=== PATIENT | male | born 1975 | race Caucasian/White ===

== ENCOUNTER 2016-11-26 19:13 | Emergency (ER) | payer OTHER ==
--- NOTE | 2016-11-26 20:00 | ED NURSING NOTES ---
Clinical Report - Nurses [facility] [address] [place] [address] 11/26/2016 19:14 Patient: NASH DEL TORO TRIAGE Triage time 19:Nov 26 2016. Acuity: LEVEL 3. Alert. No acute distress. YANNI COMA SCORE: [place] Coma Scale: 15- eyes open spontaneously (4); best verbal response- oriented x 4 (5); best motor response- obeys commands (6). --19:27 Melina Zuleta R.N. 19:21 11/26/16. BP: 143/94. HR: 89. RR: 18. O2 saturation: 97%. Temp: 98.2 F. Pain level now 0/10. --19:27 Melina Zuleta R.N. Chief Complaint: RECTAL BLEED. --21:08 Melina Zuleta R.N. Weight: 99.7 kg stated. Height/Length: 72 inches Per Patient. BMI: 29.8. --19:21 Melina Zuleta R.N. Medications Paxil Oral 10 mg, daily. --19:22 Melina Zuleta R.N. Advil Oral, as needed. --19:22 Melina Zuleta R.N. Medication/allergy information source: the patient. --19:27 Melina Zuleta R.N. Allergies No Known Drug Allergy. --19:21 Melina Zuleta R.N. History Arrived by private vehicle. Primary physician (Marcy). ( Blood in stool, noticed last at work again on Sunday and today. Some bright specs on the TP, but the toilet if full of bright red mucous on top of the stool.). Onset. (since ). Treatment COMPUTER TESTER: (Advil). PAST MEDICAL HX: Has not received seasonal influenza immunization. SURGERY HX: No history of previous surgery. SOCIAL HX: Heavy tobacco smoker (cigarette)- less than 1 pack per day. Occasional alcohol use. No drug use. FALL RISK ASSESSMENT: Fall risk assessment completed. No fall risk identified. NUTRITIONAL RISK ASSESSMENT: The nutritional risk assessment revealed no deficiencies. FUNCTIONAL ASSESSMENT: Functional assessment: no impairments noted. LEARNING NEEDS ASSESSMENT: The learning needs assessment revealed no barriers. SKIN INTEGRITY ASSESSMENT: Skin integrity risk assessment completed. No skin integrity risk identified. --19:27 Melina Zuleta R.N. PROBLEMS: Peritonsillar Abscess. Puncture Wound. Sprain. Lung Disease. Tetanus Status. --19:22 Melina Zuleta R.N. Interventions ID band on patient. To room. --19:27 Melina Zuleta R.N. PHYSICAL ASSESSMENT Ambulatory to room. GENERAL / NEURO / PSYCH: Oriented X 4. Appears in no acute distress. RESPIRATORY: Respirations not labored. CVS: Capillary refill less than 2 seconds. GI / : Abdomen soft. SKIN: Skin is warm and dry. --21:05 Melina Zuleta R.N. NURSING PROGRESS NOTES Patient ID band checked for patient name and birthdate: patient confirmed. Blood samples drawn from the right antecubital space with syringe and 21g butterfly by tech per protocol ; labeled in presence of the patient and sent to lab: [employer] set. --19:43 Zane Oliva, ER Pigment Grinder Hemoccult test negative. commercial pest control technician check passed. (POC test reference range: negative). --21:06 Melina Zuleta R.N. DISPOSITION / DISCHARGE Departure time: 20:30 Nov 26 2016. Condition at departure: unchanged and stable. No learning barriers present. Patient verbalized understanding. Written instructions provided in Faroese. No medication instructions. The patient was discharged by the nurse practitioner. He was discharged home. He left the Emergency Department ambulatory and via private vehicle. Patient driving. --21:07 Melina Zuleta R.N. 21:06 11/26/16. BP: 138/72. HR: 78. RR: 18. O2 saturation: 100%. Pain level now 0/10. --21:07 Melina Zuleta R.N. Locked/Released at 11/26/2016 21:08 by Melina Zuleta R.N.
--- NOTE | 2016-11-26 20:00 | ED CLINICAL REPORT ---
Clinical Report - Physicians/Mid Levels [facility] [address] [place] [place] [address] 11/26/2016 19:14 Patient: NASH DEL TORO Time Seen: 19:38 Nov 26 2016. Arrived- By private vehicle. Historian- patient. HISTORY OF PRESENT ILLNESS Chief Complaint: RECTAL BLEEDING. 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 The patient has had rectal bleeding but not had dark stools. No nausea or vomiting. (patient presents to the emergency department, reports he has had a few bowel movements with bright red blood following his movements. Has been taking 600-1600 motrin daily for the last 4-6 months. Denies melana. Dreports brb. Denies hemorrhoid.). REVIEW OF SYSTEMS No dizziness, fainting episodes, abnormal bleeding, blurred vision or sore throat. No cough or difficulty breathing. All systems otherwise negative, except as recorded above. PAST HISTORY Problems: Peritonsillar Abscess. Puncture Wound. Sprain. Lung Disease. Tetanus Status. Additional Surgeries: no known surgeries. Medications: Advil Oral, as needed. Paxil Oral 10 mg, daily. Allergies: No Known Drug Allergy. SOCIAL HISTORY Smoker- current status unknown. Alcohol use. No drug use. ADDITIONAL NOTES The nursing notes have been reviewed. PHYSICAL EXAM Vital Signs: 11/26/2016 19:21 BP: 143/94. HR: 89. RR: 18. O2 saturation: 97%. Temp: 98.2 F. Appearance: Alert. ENT: Nose normal. Pharynx normal. Neck: Normal inspection. CVS: Normal heart rate and rhythm. Respiratory: No respiratory distress. Breath sounds normal. No decreased air movement. Abdomen: Soft and nontender. Bowel sounds normal. No distention. Rectal: Rectal exam normal and nontender. Stool color normal. Stool heme negative. (POC test reference range: negative). No digital exam tenderness. Neuro: Oriented X 3. LABS, X-RAYS, AND EKG Laboratory Tests: CBC w Diff: (SHAVONNE: 11/26/2016 19:40) ( MsgRcvd 11/26/2016 19:50) Final results Test Result Flag Units (Reference) WHITE BLOOD COUNT 10.3 K/uL (4.5-11.5) RED BLOOD COUNT 4.83 M/uL (4.50-5.90) HEMOGLOBIN 15.3 gm/dL (13.5-17.5) HEMATOCRIT 44.8 % (41.0-53.0) MEAN CELL VOLUME 93 fL (80-100) MEAN CORPUSCULAR HGB 32 pg (26-34) MEAN CORPUSCULAR HGB CONC 34 g/dL (31-37) RED CELL DISTRIBUTION WIDTH 14.5 % (11.6-14.8) PLATELET COUNT 233 K/uL (150-400) NEUTROPHIL % 58.9 % (50-75) LYMPH % 31.6 % (25-40) MONO % 4.5 % (3-14) EOSINOPHIL % 4.4 H % (0-4) BASOPHIL % 0.6 % (0-2) PT with INR: (SHAVONNE: 11/26/2016 19:40) ( VagRcvd 11/26/2016 19:54) Final results Test Result Flag Units (Reference) INR 0.8 (0.8-1.2) Low Intensity Therapy: INR 1.5-2.0 PT range 18.5-23.1Mod.Intensity Therapy: INR 2.0-3.0 PT range 23.1-31.5High Intensity Therapy: INR 2.5-3.5 PT range 27.4-35.5High Intensity Therapy 2: INR 3.0-4.0 PT range 31.5-39.3 APTT 28 SECONDS (24-34) BMP: (SHAVONNE: 11/26/2016 19:40) ( MsgRcvd 11/26/2016 19:55) Final results Test Result Flag Units (Reference) GLUCOSE 119 H mg/dL (70-110) BUN 11 mg/dL (7-18) CREATININE 1.0 mg/dL (0.6-1.3) Estimated GFR >60 mL/min Estimated GFR- >60 mL/min Note: Persistent reduction over 3 months in eGFR<60 mL/min/1.73 m2 defines CKD. Patients with eGFR values>=60 mL/min/1.73 m2 may also have CKD if evidence ofpersistent proteinuria. Additional information may be foundat www.kidney.org. SODIUM 141 mmol/L (136-145) POTASSIUM 3.4 L mmol/L (3.5-5.1) CHLORIDE 106 mmol/L (98-107) CARBON DIOXIDE 28 mmol/L (21-32) CALCIUM 8.9 mg/dL (8.5-10.1) . PROGRESS AND PROCEDURES Course of Care: Chaperoned rectal exam with Facundo heme neg. NO signs of hemorrhoids, no signs of bleeding, hemoccult neg. Suspect either small fissure or possible complications from nsaid, however no melana, hematemesis is present. Pt instructed to stop nsaid, start tylneol and to f/u outpatient. Abd soft. NO familial h/o blood clotting/ heme diseases. Patient is stable. Patient/family counseled. Disposition: Discharged. Condition: good. CLINICAL IMPRESSION Rectal bleed consisting of bright red blood. INSTRUCTIONS Drink plenty of fluids. (Take TYLENOL instead of advil please Follow up with primary care DR in 5-10 days). Your Current Medications: STOP TAKING THE FOLLOWING MEDICATIONS: Advil Oral : prn. (Electronically signed by Kathrin Parks P.A.-C 11/26/2016 20:26)
--- NOTE | 2016-11-26 20:00 | ED ORDER SUMMARY ---
..... Patient: NASH DEL TORO OrderSheet [facility] VisitID: [id number] [place] [address] 41y, M Registration Date/Time: 11/26/2016 ORDER SHEET Weight: 99.7 kg (stated) Allergies: No Known Drug Allergy GENERAL ORDERS: CBC w Diff Urgent (19:37 11/26/2016 EKoroleva P.A.-C) (19:44 CHagerty ER Geological Specialist) BMP Urgent (19:37 11/26/2016 EKoroleva P.A.-C) (19:44 CHagerty ER Geological Specialist) PT with INR Urgent (19:37 11/26/2016 EKoroleva P.A.-C) (19:44 CHagerty ER Geological Specialist) PTT Urgent (19:37 11/26/2016 EKoroleva P.A.-C) (19:44 CHagerty ER Geological Specialist) MEDICATION ORDERS: IV FLUIDS: ORDER SHEET NOTES: [Electronically signed by Kathrin ParksAGalileo-C (20:26 11/26/2016)] [Electronically signed by Melina Zuleta R.N. (21:08 11/26/2016)] [Electronically locked/signed by Melina Zuleta R.N. (21:11/26/2016)]
--- NOTE | 2016-11-26 20:00 | ED ORDER SUMMARY ---
..... Patient: NASH DEL TORO OrderSheet [facility] VisitID: [id number] [place] [address] 41y, M Registration Date/Time: 11/26/2016 ORDER SHEET Weight: 99.7 kg (stated) Allergies: No Known Drug Allergy GENERAL ORDERS: CBC w Diff Urgent (19:37 11/26/2016 EKoroleva P.A.-C) (19:44 CHagerty ER Traffic Line Painter) BMP Urgent (19:37 11/26/2016 EKoroleva P.A.-C) (19:44 CHagerty ER Traffic Line Painter) PT with INR Urgent (19:37 11/26/2016 EKoroleva P.A.-C) (19:44 CHagerty ER Traffic Line Painter) PTT Urgent (19:37 11/26/2016 EKoroleva P.A.-C) (19:44 CHagerty ER Traffic Line Painter) MEDICATION ORDERS: IV FLUIDS: ORDER SHEET NOTES: [Electronically signed by Kathrin ParksAGalileo-C (20:26 11/26/2016)] [Electronically signed by Melina Zuleta R.N. (21:08 11/26/2016)] [Electronically locked/signed by Melina Zuleta R.N. (21:11/26/2016)]
--- NOTE | 2016-11-26 20:00 | ED CLINICAL REPORT ---
Clinical Report - Physicians/Mid Levels [facility] [address] [place] [place] [address] 11/26/2016 19:14 Patient: NASH DEL TORO Time Seen: 19:38 Nov 26 2016. Arrived- By private vehicle. Historian- patient. HISTORY OF PRESENT ILLNESS Chief Complaint: RECTAL BLEEDING. 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 The patient has had rectal bleeding but not had dark stools. No nausea or vomiting. (patient presents to the emergency department, reports he has had a few bowel movements with bright red blood following his movements. Has been taking 600-1600 motrin daily for the last 4-6 months. Denies melana. Dreports brb. Denies hemorrhoid.). REVIEW OF SYSTEMS No dizziness, fainting episodes, abnormal bleeding, blurred vision or sore throat. No cough or difficulty breathing. All systems otherwise negative, except as recorded above. PAST HISTORY Problems: Peritonsillar Abscess. Puncture Wound. Sprain. Lung Disease. Tetanus Status. Additional Surgeries: no known surgeries. Medications: Advil Oral, as needed. Paxil Oral 10 mg, daily. Allergies: No Known Drug Allergy. SOCIAL HISTORY Smoker- current status unknown. Alcohol use. No drug use. ADDITIONAL NOTES The nursing notes have been reviewed. PHYSICAL EXAM Vital Signs: 11/26/2016 19:21 BP: 143/94. HR: 89. RR: 18. O2 saturation: 97%. Temp: 98.2 F. Appearance: Alert. ENT: Nose normal. Pharynx normal. Neck: Normal inspection. CVS: Normal heart rate and rhythm. Respiratory: No respiratory distress. Breath sounds normal. No decreased air movement. Abdomen: Soft and nontender. Bowel sounds normal. No distention. Rectal: Rectal exam normal and nontender. Stool color normal. Stool heme negative. (POC test reference range: negative). No digital exam tenderness. Neuro: Oriented X 3. LABS, X-RAYS, AND EKG Laboratory Tests: CBC w Diff: (SHAVONNE: 11/26/2016 19:40) ( MsgRcvd 11/26/2016 19:50) Final results Test Result Flag Units (Reference) WHITE BLOOD COUNT 10.3 K/uL (4.5-11.5) RED BLOOD COUNT 4.83 M/uL (4.50-5.90) HEMOGLOBIN 15.3 gm/dL (13.5-17.5) HEMATOCRIT 44.8 % (41.0-53.0) MEAN CELL VOLUME 93 fL (80-100) MEAN CORPUSCULAR HGB 32 pg (26-34) MEAN CORPUSCULAR HGB CONC 34 g/dL (31-37) RED CELL DISTRIBUTION WIDTH 14.5 % (11.6-14.8) PLATELET COUNT 233 K/uL (150-400) NEUTROPHIL % 58.9 % (50-75) LYMPH % 31.6 % (25-40) MONO % 4.5 % (3-14) EOSINOPHIL % 4.4 H % (0-4) BASOPHIL % 0.6 % (0-2) PT with INR: (SHAVONNE: 11/26/2016 19:40) ( TxgRcvd 11/26/2016 19:54) Final results Test Result Flag Units (Reference) INR 0.8 (0.8-1.2) Low Intensity Therapy: INR 1.5-2.0 PT range 18.5-23.1Mod.Intensity Therapy: INR 2.0-3.0 PT range 23.1-31.5High Intensity Therapy: INR 2.5-3.5 PT range 27.4-35.5High Intensity Therapy 2: INR 3.0-4.0 PT range 31.5-39.3 APTT 28 SECONDS (24-34) BMP: (SHAVONNE: 11/26/2016 19:40) ( MsgRcvd 11/26/2016 19:55) Final results Test Result Flag Units (Reference) GLUCOSE 119 H mg/dL (70-110) BUN 11 mg/dL (7-18) CREATININE 1.0 mg/dL (0.6-1.3) Estimated GFR >60 mL/min Estimated GFR- >60 mL/min Note: Persistent reduction over 3 months in eGFR<60 mL/min/1.73 m2 defines CKD. Patients with eGFR values>=60 mL/min/1.73 m2 may also have CKD if evidence ofpersistent proteinuria. Additional information may be foundat www.kidney.org. SODIUM 141 mmol/L (136-145) POTASSIUM 3.4 L mmol/L (3.5-5.1) CHLORIDE 106 mmol/L (98-107) CARBON DIOXIDE 28 mmol/L (21-32) CALCIUM 8.9 mg/dL (8.5-10.1) . PROGRESS AND PROCEDURES Course of Care: Chaperoned rectal exam with Facundo heme neg. NO signs of hemorrhoids, no signs of bleeding, hemoccult neg. Suspect either small fissure or possible complications from nsaid, however no melana, hematemesis is present. Pt instructed to stop nsaid, start tylneol and to f/u outpatient. Abd soft. NO familial h/o blood clotting/ heme diseases. Patient is stable. Patient/family counseled. Disposition: Discharged. Condition: good. CLINICAL IMPRESSION Rectal bleed consisting of bright red blood. INSTRUCTIONS Drink plenty of fluids. (Take TYLENOL instead of advil please Follow up with primary care DR in 5-10 days). Your Current Medications: STOP TAKING THE FOLLOWING MEDICATIONS: Advil Oral : prn. (Electronically signed by Kathrin Parks P.A.-C 11/26/2016 20:26)
--- NOTE | 2016-11-26 20:00 | ED NURSING NOTES ---
Clinical Report - Nurses [facility] [address] [place] [address] 11/26/2016 19:14 Patient: NASH DEL TORO TRIAGE Triage time 19:Nov 26 2016. Acuity: LEVEL 3. Alert. No acute distress. YANNI COMA SCORE: [place] Coma Scale: 15- eyes open spontaneously (4); best verbal response- oriented x 4 (5); best motor response- obeys commands (6). --19:27 Melina Zuleta R.N. 19:21 11/26/16. BP: 143/94. HR: 89. RR: 18. O2 saturation: 97%. Temp: 98.2 F. Pain level now 0/10. --19:27 Melina Zuleta R.N. Chief Complaint: RECTAL BLEED. --21:08 Melina Zuleta R.N. Weight: 99.7 kg stated. Height/Length: 72 inches Per Patient. BMI: 29.8. --19:21 Melina Zuleta R.N. Medications Paxil Oral 10 mg, daily. --19:22 Melina Zuleta R.N. Advil Oral, as needed. --19:22 Melina Zuleta R.N. Medication/allergy information source: the patient. --19:27 Melina Zuleta R.N. Allergies No Known Drug Allergy. --19:21 Melina Zuleta R.N. History Arrived by private vehicle. Primary physician (Marcy). ( Blood in stool, noticed last at work again on Sunday and today. Some bright specs on the TP, but the toilet if full of bright red mucous on top of the stool.). Onset. (since ). 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 PAST MEDICAL HX: Has not received seasonal influenza immunization. SURGERY HX: No history of previous surgery. SOCIAL HX: Heavy tobacco smoker (cigarette)- less than 1 pack per day. Occasional alcohol use. No drug use. FALL RISK ASSESSMENT: Fall risk assessment completed. No fall risk identified. NUTRITIONAL RISK ASSESSMENT: The nutritional risk assessment revealed no deficiencies. FUNCTIONAL ASSESSMENT: Functional assessment: no impairments noted. LEARNING NEEDS ASSESSMENT: The learning needs assessment revealed no barriers. SKIN INTEGRITY ASSESSMENT: Skin integrity risk assessment completed. No skin integrity risk identified. --19:27 Melina Zuleta R.N. PROBLEMS: Peritonsillar Abscess. Puncture Wound. Sprain. Lung Disease. Tetanus Status. --19:22 Melina Zuleta R.N. Interventions ID band on patient. To room. --19:27 Melina Zuleta R.N. PHYSICAL ASSESSMENT Ambulatory to room. GENERAL / NEURO / PSYCH: Oriented X 4. Appears in no acute distress. RESPIRATORY: Respirations not labored. CVS: Capillary refill less than 2 seconds. GI / : Abdomen soft. SKIN: Skin is warm and dry. --21:05 Melina Zuleta R.N. NURSING PROGRESS NOTES Patient ID band checked for patient name and birthdate: patient confirmed. Blood samples drawn from the right antecubital space with syringe and 21g butterfly by tech per protocol ; labeled in presence of the patient and sent to lab: [employer] set. --19:43 Zane Oliva, ER Slip Box Changer Hemoccult test negative. process control technician check passed. (POC test reference range: negative). --21:06 Melina Zuleta R.N. DISPOSITION / DISCHARGE Departure time: 20:30 Nov 26 2016. Condition at departure: unchanged and stable. No learning barriers present. Patient verbalized understanding. Written instructions provided in Nepali. No medication instructions. The patient was discharged by the nurse practitioner. He was discharged home. He left the Emergency Department ambulatory and via private vehicle. Patient driving. --21:07 Melina Zuleta R.N. 21:06 11/26/16. BP: 138/72. HR: 78. RR: 18. O2 saturation: 100%. Pain level now 0/10. --21:07 Melina Zuleta R.N. Locked/Released at 11/26/2016 21:08 by Melina Zuleta R.N.
--- NOTE | 2016-11-26 21:09 | ED MED RECONCILIATION SUMMARY ---
Patient: NASH DEL TORO Medication Reconciliation Report [facility] VisitID: [id number] [address] [place] [address] 41y, M Registration Date/Time: 11/26/2016 Weight: 99.7 kg Height/Length: 72 in. BMI: 29.8 ALLERGIES: No Known Drug Allergy The patient's Home Medications are listed below: STOP TAKING THE FOLLOWING MEDICATIONS: Advil Oral THE FOLLOWING MEDICATIONS NEED TO BE RECONCILED: Paxil Oral 10 mg, daily The source(s) of the original Home Medication information: patient The following Medications were given to the patient in the Emergency Department: None. The following Medications were prescribed to the patient: None.
--- NOTE | 2016-11-26 21:09 | ED MED RECONCILIATION SUMMARY ---
Patient: NASH DEL TORO Medication Reconciliation Report [facility] VisitID: [id number] [address] [place] [address] 41y, M Registration Date/Time: 11/26/2016 Weight: 99.7 kg Height/Length: 72 in. BMI: 29.8 ALLERGIES: No Known Drug Allergy The patient's Home Medications are listed below: STOP TAKING THE FOLLOWING MEDICATIONS: Advil Oral THE FOLLOWING MEDICATIONS NEED TO BE RECONCILED: Paxil Oral 10 mg, daily The source(s) of the original Home Medication information: patient The following Medications were given to the patient in the Emergency Department: None. The following Medications were prescribed to the patient: None.
--- NOTE | 2016-11-26 21:09 | ED MAR SUMMARY ---
..... Medication Administration Record [facility] [address] [place], [place] [id number] Patient: ALVERTO, NASH Mendoza Visit ID: [id number] 41y, M Weight: 99.7 kg Height/Length: 72 in BMI: 29.8 ALLERGIES: No Known Drug Allergy
--- NOTE | 2016-11-26 21:09 | ED DISCHARGE INSTRUCTIONS ---
Patient: NASH DEL TORO General Instructions [facility] VisitID: [id number] [place] [address] 41y, M Registration Date/Time: 11/26/2016 Rectal bleed consisting of bright red blood. INSTRUCTIONS Drink plenty of fluids. (Take TYLENOL instead of advil please Follow up with primary care DR in 5-10 days). Your Current Medications: STOP TAKING THE FOLLOWING MEDICATIONS: Advil Oral : prn. ADDITIONAL INFORMATION Rectal Bleeding (Stable) Your exam today shows signs of blood in the stool. This is called rectal bleeding, because the blood passes through the rectum. However, the blood may not be coming from the rectum. Blood in the stool may be red or black in color. Red blood in the stool usually comes from the lower gastro-intestinal (GI) tract. This may be due to diverticulosis, polyps, colon inflammation or infection, anal fissure or hemorrhoids. In persons over 50 tumors and cancer of the intestinal tract may first show up as red blood in the stool. Upper GI bleeding causes the stool to turn black. This may occur with bleeding from the esophagus, stomach, duodenum or small intestine. Very small amounts of GI bleeding may not be visible and can only be discovered on a chemical test of the stool. You have not lost a large amount of blood and your condition appears stable at this time. It is very important to have a follow-up exam to determine the exact cause of your bleeding. Home Care: 1) You may resume normal activity as long as you feel well. 2) Avoid aspirin and anti-inflammatory drugs such as ibuprofen (Advil, Motrin) and naproxen (Aleve and Naprosyn). You may use acetaminophen (Tylenol) for pain. [ NOTE : If you have chronic liver disease, talk with your doctor before using acetaminophen.] 3) Avoid alcohol. Follow Up with your doctor or as advised by our medical staff. It is very important that you have further tests done to find the cause of your bleeding. Get Prompt Medical Attention if any of the following occur: -- Large amount of rectal bleeding (more than 1 cup of blood in 24 hours) -- Increasing abdominal pain -- Weakness, dizziness or fainting -- Vomiting blood (red or black color) You have been given the following additional information: Rectal Bleed, Stable (Electronically signed by Kathrin Parks P.A.-C 11/26/2016 20:26)
--- NOTE | 2016-11-26 21:09 | ED MAR SUMMARY ---
..... Medication Administration Record [facility] [address] [place], [place] [id number] Patient: ALVERTO, NASH Mendoza Visit ID: [id number] 41y, M Weight: 99.7 kg Height/Length: 72 in BMI: 29.8 ALLERGIES: No Known Drug Allergy
== END 2016-11-26 20:30 | disposition home or self-care (01) ==
LOC: ED SRH 19:13
DX: K62.5 Hemorrhage of anus and rectum (principal)
CPT/HCPCS: 90047; 94001; 94060; 95059